=== PATIENT | female | born 1975 | race Caucasian/White ===

== ENCOUNTER 2018-08-03 13:35 | Emergency (ER) | payer OTHER ==
[~2018-08-03] VITALS: Ht 160 cm; Wt 49.0 kg
[~2018-08-03 13:35] MED LIST: TENCON TABLET1 TAB PO
[2018-08-03] MEDS ORDERED: APETIGEN-PLUS1 EACH PO (13:43)
[2018-08-03] MEDS ORDERED: ZANTAC150 M3 PO (13:43)
[2018-08-03] MEDS ORDERED: CLARITIN5 MG/5 ML PO (13:44)
== END 2018-08-03 18:06 | disposition home or self-care (01) ==
LOC: ER 13:35
DX: R05 Cough (principal)